=== PATIENT | male | born 1955 | race Caucasian/White ===

== ENCOUNTER 2021-11-25 16:27 | Emergency (ER) | payer OTHER ==
[~2021-11-25] VITALS: Ht 177.8 cm; Wt 86.0 kg
[2021-11-25] MEDS ORDERED: ASPIRIN CHEWABLE 81 MG TABLET. PO ONE (17:00)
--- NOTE | 2021-11-25 17:11 | PHYS DOC ---
Past History Past Medical History: CAD, High Cholesterol, Hypertension, Hypothyroid (JOSE ANTONIO VAZQUEZ APRN) Past Surgical History: Coronary Bypass Surgery (JOSE ANTONIO VAZQUEZ APRN) Smoking: Quit Greater Than 1 Year Alcohol Use: None Drug Use: None (JOSE ANTONIO VAZQUEZ APRN) General Adult EDM: Chief Complaint: CHEST PAIN HPI: HPI: Patient is a 66-year-old male that presents today with chest pain. Patient states around 3 PM today he was walking from the [facility] and he started experiencing chest pain he also got a warm flush feeling in his chest, he had nausea related to this pain, he says the pain radiated from his left chest shoulder area to his right chest shoulder area, he said that once he sat down the pain has resolved. Patient's oxygen saturation upon arrival was around 80 to 82%, patient was placed on 4 L per nasal cannula by the nursing staff, patient is talking in complete sentences and does not exhibit increased work of breathing during the HPI. Patient does have a past medical history of coronary artery disease, he was seen today by cardiology this morning Dr. Cobian saw him on a office visit he had a ZIO monitoring device placed, and he states he was being scheduled for a stress test at a later date. Patient states he does take Plavix and aspirin on a daily basis and he took both of those today. (JOSE ANTONIO VAZQUEZ APRN) Review of Systems: Review of Systems: Constitutional: Denies fever or chills Eyes: Denies change in visual acuity HENT: Denies nasal congestion or sore throat Respiratory: Denies cough or shortness of breath Cardiovascular: Denies chest pain or edema GI: Denies abdominal pain, nausea, vomiting, bloody stools or diarrhea : Denies dysuria Musculoskeletal: Denies back pain or joint pain Integument: Denies rash Neurologic: Denies headache, focal weakness or sensory changes Endocrine: Denies polyuria or polydipsia Lymphatic: Denies swollen glands Psychiatric: Denies depression or anxiety (JOSE ANTONIO VAZQUEZ APRN) Current Medications: Current Meds: Current Medications Medications (Trade) Dose Ordered Sig/Bradford Start Time Stop Time Status Last Admin Dose Admin Aspirin (Aspirin Chewable) 324 mg 1X ONCE 11/25/21 17:00 11/25/21 17:01 UNV (JOSE ANTONIO VAZQUEZ APRN) Physical Exam: PE: Constitutional: Well developed, well nourished, no acute distress, non-toxic appearance. [] HENT: Normocephalic, atraumatic, bilateral external ears normal, oropharynx moist, no oral exudates, nose normal. [] Eyes: PERRLA, EOMI, conjunctiva normal, no discharge. [] Neck: Normal range of motion, no tenderness, supple, no stridor. [] Cardiovascular:Heart rate regular rhythm, no murmur [] Lungs & Thorax: Bilateral breath sounds clear to auscultation [] Abdomen: Bowel sounds normal, soft, no tenderness, no masses, no pulsatile masses. [] Skin: Warm, dry, no erythema, no rash. [] Back: No tenderness, no CVA tenderness. [] Extremities: No tenderness, no cyanosis, no clubbing, ROM intact, no edema. [] Neurologic: Alert and oriented X 3, normal motor function, normal sensory function, no focal deficits noted. [] Psychologic: Affect normal, judgement normal, mood normal. [] (JOSE ANTONIO VAZQUEZ APRN) Current Patient Data: Labs: Laboratory Tests Test 11/25/21 17:00 11/25/21 17:40 White Blood Count 11.1 x10^3/uL Red Blood Count 4.65 x10^6/uL Hemoglobin 13.4 g/dL Hematocrit 40.6 % Mean Corpuscular Volume 87 fL Mean Corpuscular Hemoglobin 29 pg Mean Corpuscular Hemoglobin Concent 33 g/dL Red Cell Distribution Width 14.9 % Platelet Count 167 x10^3/uL Neutrophils (%) (Auto) 83 % Lymphocytes (%) (Auto) 7 % Monocytes (%) (Auto) 8 % Eosinophils (%) (Auto) 2 % Basophils (%) (Auto) 1 % Neutrophils # (Auto) 9.3 x10^3uL Lymphocytes # (Auto) 0.8 x10^3/uL Monocytes # (Auto) 0.8 x10^3/uL Eosinophils # (Auto) 0.2 x10^3/uL Basophils # (Auto) 0.1 x10^3/uL Prothrombin Time 10.4 SEC Prothromb Time International Ratio 1.0 Activated Partial Thromboplast Time 24 SEC Sodium Level 140 mmol/L Potassium Level 3.9 mmol/L Chloride Level 104 mmol/L Carbon Dioxide Level 25 mmol/L Anion Gap 11 Blood Urea Nitrogen 22 mg/dL Creatinine 1.4 mg/dL Estimated GFR (Cockcroft-Gault) 51.0 BUN/Creatinine Ratio 16 Glucose Level 291 mg/dL Calcium Level 9.5 mg/dL Magnesium Level 1.8 mg/dL Total Bilirubin 0.3 mg/dL Aspartate Amino Transf (AST/SGOT) 43 U/L Alanine Aminotransferase (ALT/SGPT) 40 U/L Alkaline Phosphatase 79 U/L Troponin I High Sensitivity 350 ng/L HN-Mef-A-Type Natriuretic Peptide 902 pg/mL Total Protein 7.4 g/dL Albumin 4.0 g/dL Albumin/Globulin Ratio 1.2 SARS-CoV-2 Antigen (Rapid) Negative Current Medications Medications (Trade) Dose Ordered Sig/Bradford Route PRN Reason Start Time Stop Time Status Last Admin Dose Admin Aspirin (Aspirin Chewable) 324 mg 1X ONCE PO 11/25/21 17:00 11/25/21 17:18 DC 11/25/21 17:00 Iohexol (Omnipaque 350 Mg/ml) 100 ml 1X ONCE IV 11/25/21 17:15 11/25/21 17:18 DC 11/25/21 18:00 Morphine Sulfate (Morphine 2mg Syringe) 2 mg 1X ONCE IV 11/25/21 17:15 11/25/21 17:22 DC 11/25/21 17:28 Heparin Sodium/ Dextrose 250 ml @ 10.5 mls/hr CONT PRN IV SEE I/O RECORD 11/25/21 17:15 11/25/21 17:32 Heparin Sodium (Porcine) (Heparin Sodium) 4,000 unit 1X ONCE IV 11/25/21 17:15 11/25/21 17:22 DC 11/25/21 17:31 Heparin Sodium (Porcine) (Heparin Sodium) 2,150 unit PRN Q6HRS PRN IV FOR PTT LESS THAN 24 SECONDS 11/25/21 17:15 Vital Signs: Vital Signs Date Time Temp Pulse Resp B/P (MAP) Pulse Ox O2 Delivery O2 Flow Rate FiO2 11/25/21 17:28 22 11/25/21 16:30 97.9 103 18 135/79 (97) 93 Nasal Cannula 5.0 Vital Signs Date Time Temp Pulse Resp B/P (MAP) Pulse Ox O2 Delivery O2 Flow Rate FiO2 11/25/21 17:28 22 11/25/21 16:30 97.9 103 18 135/79 (97) 93 Nasal Cannula 5.0 (JOSE ANTONIO VAZQUEZ ACTION INSTALLER) EKG: EKG: EKG done at [address] Caputo at 1651 shows sinus rhythm with ST segment depression lead I, left bundle noted rate of 98 NV interval of 162 ms with a QTC of 464 ms. No STEMI [] (JOSE ANTONIO VAZQUEZ ACTION INSTALLER) Radiology/Procedures: Radiology/Procedures: REASON: chest pain, copd, cabg PROCEDURE: PORTABLE CHEST 1V EXAM: AP View of the chest DATE: 11/25/2021 4:58 PM INDICATION: Reason: chest pain, copd, cabg / Spl. Instructions: / History: COMPARISON: No Prior FINDINGS: The heart is not enlarged. Device projects over the left chest limiting evaluation of the left lung. Left atrial appendage ligation clip is seen. Changes of prior sternotomy. Airspace opacities in the lung bases bilaterally with interstitial prominence. No pleural effusion or pneumothorax. IMPRESSION: 1. Bilateral airspace opacities and interstitial prominence possibly atypical infectious or inflammatory process. Electronically signed by: Dennis Tang MD (11/25/2021 5:34 PM) THERON REASON: chest pain and decrease O2 stat hx :cabg, copd PROCEDURE: CT ANGIOGRAPHY CHEST EXAM: CT chest with contrast - pulmonary embolus protocol CLINICAL HISTORY: Reason: chest pain and decrease O2 stat hx :cabg, copd COMPARISON: None. TECHNIQUE: CT of the chest following the administration of intravenous contrast during the pulmonary arterial phase. Axial, coronal and sagittal reformatted images were generated including MIP images. ---PQRS compliance statement - One or more of the following individualized dose reduction techniques were utilized for this study: 1. Automated exposure control 2. Adjustment of the mA and/or kV according to patient size 3. Use of iterative reconstruction technique--- FINDINGS: CHEST: Diagnostic quality: Adequate. Pulmonary emboli: None seen Right heart strain: None Pulmonary arteries: Normal in caliber. Heart is not enlarged. Coronary calcifications are seen. No pericardial effusion. No pleural effusion. No pneumothorax. Atheromatous plaque at the origin of the brachiocephalic artery. Atherosclerotic calcifications are also seen at the origin of the left subclavian artery. 1.6 cm cyst is seen in the anterior mediastinum. No axillary lymphadenopathy. Enlarged right hilar lymphadenopathy for example a 2.4 x 1.9 cm. Mildly prominent to borderline enlarged left hilar lymph nodes are also seen. No axillary lymphadenopathy. Interstitial prominence bilaterally. Bilateral groundglass airspace opacities are seen. Emphysematous changes are seen. 6 mm right upper lobe lung nodule (series 4 image 36) Small hiatal hernia. Visualized Upper abdomen: Unremarkable. Bones: Trace height loss of the T9 vertebral body, age-indeterminate compression fracture. Otherwise, no aggressive osseous lesion is seen. IMPRESSION: 1. No evidence for acute pulmonary embolus. 2. Emphysematous changes are seen bilaterally. Associated interstitial prominence and ground glass opacities may represent atypical infectious or inflammatory process. Imaging follow-up to resolution is recommended. 3. 6 mm right upper lobe lung nodule. Per Fleischner Society guidelines for i ncidentally found solid nodules measuring less than 6 mm, no follow-up is necessary if patient is considered at low risk for lung cancer. If patient is considered to be at high risk, such as with history of smoking, then CT follow- up in about 12 months can be considered. 4. Enlarged mediastinal and hilar lymph nodes, likely reactive. Recommend close attention on follow-up. 5. Trace height loss of T9, age-indeterminate compression fracture. Electronically signed by: Dennis Tang MD (11/25/2021 6:45 PM) [facility] [] (JOSE ANTONIO VAZQUEZ APRN) Heart Score: C/O Chest Pain: Yes HEART Score for Chest Pain: HEART Score for Chest Pain Response (Comments) Value History Highly Suspicious [address] Depression 2 Age >45 - < 65 1 Risk Factors >3 Risk Factors or Hx CAD 2 Troponin >3 x Normal Limit 2 Total 9 Risk Factors: Risk Factors: DM, Current or recent (<one month) smoker, HTN, HLP, family history of CAD, obesity. Risk Scores: Score 0 - 3: 2.5% MACE over next 6 weeks - Discharge Home Score 4 - 6: 20.3% MACE over next 6 weeks - Admit for Clinical Observation Score 7 - 10: 72.7% MACE over next 6 weeks - Early Invasive Strategies (JOSE ANTONIO VAZQUEZ APRN) Course & Med Decision Making: Course & Med Decision Making Pertinent Labs and Imaging studies reviewed. (See chart for details) 1700 Dr. Partida with cardiology has been consulted regarding this patient's EKG changes. [address] Good and he recommends that patient be transferred to [facility] for a possible cath, hospitalist for [facility] was paged, I did speak to patient and he is agreeable to transfer. [address] Moraes at [facility] he is excepting the patient for admission. 185 CTA results showed no acute PE at this time. Patient will be transferred to [facility] with a heparin drip infusing. (OJSE ANTONIO VAZQUEZ APRN) Dragon Disclaimer: Dragon Disclaimer: This electronic medical record was generated, in whole or in part, using a voice recognition dictation system. (JOSE ANTONIO VAZQUEZ APRN) Departure Departure: Impression: Primary Impression: Chest pain due to CAD Disposition: 02 SHORT TERM HOSPITAL Condition: GUARDED Referrals: PCP,NO (PCP) Dragon Disclaimer This chart was dictated in whole or in part using Voice Recognition software in a busy, high-work load, and often noisy Emergency Department environment. It may contain unintended and wholly unrecognized errors or omissions. (PRIYA RODRIGUES MD) Dragon Disclaimer This chart was dictated in whole or in part using Voice Recognition software in a busy, high-work load, and often noisy Emergency Department environment. It may contain unintended and wholly unrecognized errors or omissions. (PRIYA RODRIGUES MD) JOSE ANTONIO VAZQUEZ APRN Nov 25, 2021 17:11 PRIYA RODRIGUES MD Nov 30, 2021 20:22
[2021-11-25] MEDS ORDERED: HEPARIN for IV BOLUS 10,000 UNIT/10 ML VIAL. IV PRN (17:15)
[2021-11-25] MEDS ORDERED: MORPHINE SULFATE 2 MG/ML DISP.SYRIN. IV ONE ×2 (17:15→19:00)
[2021-11-25] MEDS ORDERED: HEPARIN for IV BOLUS 10,000 UNIT/10 ML VIAL. IV ONE (17:15)
[2021-11-25] MEDS ORDERED: IOHEXOL 350 MG/ML 100 ML VIAL. IV ONE (17:15)
[2021-11-25] MEDS ORDERED: HEPARIN 25,000UTS/250ML PREMIX 250 ML IV PRN (17:15)
[2021-11-25 17:27] LABS: BASO # 0.1 x10^3/uL (0.0-0.2); BASO % 1 % (0-3); EOS # 0.2 x10^3/uL (0.0-0.7); EOS % 2 % (0-3); HEMATOCRIT 40.6 % (39.0-53.0); HEMOGLOBIN 13.4 g/dL (13.0-17.5); LYMPH # 0.8 x10^3/uL (1.0-4.8); LYMPH % 7 % (24-48); MEAN CORPUSCULAR HEMOGLOBIN 29 pg (25-35); MEAN CORPUSCULAR HGB CONC 33 g/dL (31-37); MEAN CORPUSCULAR VOLUME 87 fL (79-100); MONO # 0.8 x10^3/uL (0.0-1.1); MONO % 8 % (0-9); NEUT # 9.3 x10^3uL (1.8-7.7); NEUT % 83 % (31-73); PLATELET COUNT 167 x10^3/uL (140-400); RED BLOOD COUNT 4.65 x10^6/uL (4.30-5.70); RED CELL DISTRIBUTION WIDTH 14.9 % (11.5-14.5); WHITE BLOOD COUNT 11.1 x10^3/uL (4.0-11.0)
--- NOTE | 2021-11-25 17:37 | RAD ---
EXAM: AP View of the chest DATE: 11/25/2021 4:58 PM INDICATION: Reason: chest pain, copd, cabg / Spl. Instructions: / History: COMPARISON: No Prior FINDINGS: The heart is not enlarged. Device projects over the left chest limiting evaluation of the left lung. Left atrial appendage ligation clip is seen. Changes of prior sternotomy. Airspace opacities in the lung bases bilaterally with interstitial prominence. No pleural effusion or pneumothorax. IMPRESSION: 1. Bilateral airspace opacities and interstitial prominence possibly atypical infectious or inflamma tory process. Electronically signed by: Dennis Tang MD (11/25/2021 5:34 PM) THERON
[2021-11-25 17:39] LABS: CALCIUM 9.5 mg/dL (8.5-10.1); CREATININE 1.4 mg/dL (0.7-1.3); POTASSIUM 3.9 mmol/L (3.5-5.1)
[2021-11-25 17:51] LABS: ALBUMIN/GLOBULIN RATIO 1.2 (1.0-1.7); MAGNESIUM 1.8 mg/dL (1.8-2.4); TOTAL BILIRUBIN 0.3 mg/dL (0.2-1.0); TOTAL PROTEIN 7.4 g/dL (6.4-8.2)
--- NOTE | 2021-11-25 18:47 | RAD ---
EXAM: CT chest with contrast - pulmonary embolus protocol CLINICAL HISTORY: Reason: chest pain and decrease O2 stat hx :cabg, copd COMPARISON: None. TECHNIQUE: CT of the chest following the administration of intravenous contrast during the pulmonary arterial phase. Axial, coronal and sagittal reformatted images were generated including MIP images. ---PQRS compliance statement - One or more of the following individualized dose reduction techniques were utilized for this study: 1. Automated exposure control 2. Adjustment of the mA and/or kV according to patient size 3. Use of iterative reconstruction technique--- FINDINGS: CHEST: Diagnostic quality: Adequate. Pulmonary emboli: None seen Right heart strain: None Pulmonary arteries: Normal in caliber. Heart is not enlarged. Coronary calcifications are seen. No pericardial effusion. No pleural effusion . No pneumothorax. Atheromatous plaque at the origin of the brachiocephalic artery. Atherosclerotic calcifications are a lso seen at the origin of the left subclavian artery. 1.6 cm cyst is seen in the anterior mediastinum. No axillary lymphadenopathy. Enlarged right hilar ly mphadenopathy for example a 2.4 x 1.9 cm. Mildly prominent to borderline enlarged left hilar lymph no fatuma are also seen. No axillary lymphadenopathy. Interstitial prominence bilaterally. Bilateral groundglass airspace opacities are seen. Emphysematous changes are seen. 6 mm right upper lobe lung nodule (series 4 image 36) Small hiatal hernia. Visualized Upper abdomen: Unremarkable. Bones: Trace height loss of the T9 vertebral body, age-indeterminate compression fracture. Otherwise, no aggressive osseous lesion is seen. IMPRESSION: 1. No evidence for acute pulmonary embolus. 2. Emphysematous changes are seen bilaterally. Associated interstitial prominence and ground glass o pacities may represent atypical infectious or inflammatory process. Imaging follow-up to resolution i s recommended. 3. 6 mm right upper lobe lung nodule. Per Fleischner Society guidelines for incidentally found solid nodules measuring less than 6 mm, no follow-up is necessary if patient is considered at low risk for lung cancer. If patient is considered to be at high risk, such as with history of smoking, then CT f ollow-up in about 12 months can be considered. 4. Enlarged mediastinal and hilar lymph nodes, likely reactive. Recommend close attention on follow- up. 5. Trace height loss of T9, age-indeterminate compression fracture. Electronically signed by: Dennis Tang MD (11/25/2021 6:45 PM) THERON
[2021-11-25 19:02] VITALS: BP 144/72
--- NOTE | 2021-11-26 06:42 | EKG ---
[address] [address] Test Date: 2021-11-25 Test Time: 16:47:53 Pat Name: HOLLY DRISCOLL Department: Room: Gender: M Reflector Driller And Deburrer: JOSETTE : 1955 Requested By: JOSE ANTONIO VAZQUEZ Order Number: [id number] Reading MD: Omar Cobian Measurements Intervals [place] Rate: 100 P: -23 NM: 168 QRS: 28 QRSD: 94 T: 76 QT: 356 QTc: 462 Interpretive Statements SINUS RHYTHM ATRIAL PREMATURE COMPLEX(ES) LVH WITH REPOLARIZATION ABNORMALITY QRS(T) CONTOUR ABNORMALITY CONSISTENT WITH INFERIOR INFARCT PROBABLY OLD ABNORMAL ECG RI6.01 No previous ECG available for comparison Electronically Signed On 11-28-2021 8:48:44 CLINICAL RESEARCH NURSE COORDINATOR by Omar Cobian
--- NOTE | 2021-11-26 07:57 | EKG ---
[address] [address] Test Date: 2021-11-25 Test Time: 16:49:50 Pat Name: HOLLY DRISCOLL Department: Room: Gender: M Head Of Loss Prevention: JOSETTE : 1955 Requested By: JOSE ANTONIO VAZQUEZ Order Number: [id number] Reading MD: Omar Cobian Measurements Intervals [place] Rate: 98 P: 24 [place]: 162 QRS: -6 QRSD: 94 T: 83 QT: 362 QTc: 464 Interpretive Statements SINUS RHYTHM ATRIAL PREMATURE COMPLEX(ES) LEFT ATRIAL ABNORMALITY LEFTWARD AXIS LVH WITH REPOLARIZATION ABNORMALITY ABNORMAL ECG Electronically Signed On 11-28-2021 8:48:20 CLOTH DYEING RANGE TENDER by Omar Cboian
== END 2021-11-25 19:20 | disposition short-term general hospital (02) ==
LOC: ER 16:27
DX: I25.810 Atherosclerosis of coronary artery bypass graft(s) without angina pectoris (principal); R07.89 Other chest pain; E78.00 Pure hypercholesterolemia, unspecified; I10 Essential (primary) hypertension; E03.9 Hypothyroidism, unspecified; Z20.822 Contact with and (suspected) exposure to COVID-19; Z87.891 Personal history of nicotine dependence
CPT/HCPCS: 36415; 71045; 71275; 80053; 83735; 83880; 84484; 85025; 85610; 85730; 87426; 93005; 96365; 96366; 96375; 96376; 99285; C9803; J1644; J2270; Q9967; U0003